=== PATIENT | male | born 1995 | race Two or more races ===

== ENCOUNTER 2017-03-01 18:00 | Emergency (ER) | payer MEDICAID, OTHER ==
[~2017-03-01] VITALS: Ht 165.1 cm; Wt 69.0 kg
[2017-03-01 21:03] VITALS: BP 126/78
== END 2017-03-01 22:22 | disposition home or self-care (01) ==
LOC: ER 18:00
DX: S60.562A Insect bite (nonvenomous) of left hand, initial encounter (principal); W57.XXXA Bitten or stung by nonvenomous insect and other nonvenomous arthropods, initial encounter; Y93.89 Activity, other specified; Y92.9 Unspecified place or not applicable; Y99.8 Other external cause status
CPT/HCPCS: 99282